=== PATIENT | male | born 1960 | race Caucasian/White ===

== ENCOUNTER 2017-01-12 18:41 | Emergency (ER) | payer MEDICAID, OTHER ==
[~2017-01-12] VITALS: Ht 170.2 cm; Wt 119.0 kg
[~2017-01-12 18:41] MED LIST: ASPI-535
[2017-01-12 18:46] VITALS: Ht 170.2 cm; Wt 119.0 kg
[2017-01-12] MEDS ORDERED: SOD CHLORIDE 0.9% 1,000 ML IV STA (19:42)
[2017-01-12] MEDS ORDERED: ONDANSETRON 4 MG INJ IV STA (19:42)
[2017-01-12] MEDS ORDERED: morphine 4 MG/ML VIAL IV STA (19:42)
[2017-01-12] MEDS ORDERED: LIDOCAINE/MYLANTA 40 ML BTL PO STA (19:42)
[2017-01-12 19:56] LABS: BASOPHILS % 0.3 % (0.0-2.0); EOSINOPHILS # 0.1 10^3/ul (0.0-0.5); EOSINOPHILS % 1.3 % (0.0-7.0); HEMATOCRIT 45.6 % (42.0-52.0); HEMOGLOBIN 15.5 g/dl (14.0-18.0); LYMPHOCYTES # 1.9 10^3/ul (0.8-2.9); LYMPHOCYTES % 18.8 % (15.0-51.0); MEAN CORPUSCULAR HEMOGLOBIN 30.9 pg (29.0-33.0); MONOCYTE # 0.8 10^3/ul (0.3-0.9); MONOCYTES % 7.7 % (0.0-11.0); NEUTROPHIL # 7.1 10^3/ul (1.6-7.5); NEUTROPHILS % 71.5 % (39.0-77.0); PLATELET COUNT 238 10^3/UL (140-415); RED BLOOD COUNT 5.01 10^6/ul (4.70-6.10); RED CELL DISTRIBUTION WIDTH 13.2 % (11.5-14.5); WHITE BLOOD COUNT 9.9 10^3/ul (4.8-10.8)
[2017-01-12 20:15] LABS: ALANINE AMINOTRANSFERASE 30 IU/L (13-69); ALBUMIN 4.1 g/dl (3.3-4.9); ALBUMIN/GLOBULIN RATIO 1.46; ALKALINE PHOSPHATASE 101 IU/L (42-121); ANION GAP 12 (8-16); ASPARTATE AMINO TRANSFERASE 21 IU/L (15-46); BILIRUBIN,INDIRECT 0.7 mg/dl (0-1.1); BILIRUBIN,TOTAL 0.7 mg/dl (0.2-1.3); BLOOD UREA NITROGEN 10 mg/dl (7-20); CALCIUM 10.6 mg/dl (8.4-10.2); CARBON DIOXIDE 25 mmol/L (21-31); CHLORIDE 107 mmol/L (97-110); CREATININE 0.86 mg/dl (0.61-1.24); GLUCOSE 115 mg/dl (70-220); SODIUM 140 mmol/L (135-144); TOTAL PROTEIN 6.9 g/dl (6.1-8.1)
--- NOTE | 2017-01-12 20:23 | RADRPT ---
PROCEDURE: US Abdomen (right upper quadrant). CLINICAL INDICATION: Abdominal pain TECHNIQUE: Multiple real-time longitudinal and transverse images of the right upper quadrant of th e abdomen were acquired utilizing a curved array transducer. Images were reviewed on a high-resoluti on PACS workstation. COMPARISON: None FINDINGS: The liver is enlarged measuring 19.8 cm in size and echogenicity without focal mass or intrahepatic biliary dilatation. The gallbladder is normal. There is no pericholecystic fluid or gallbladder wa ll thickening or gallstones. No intra or extrahepatic biliary dilatation is seen. The common bile duct measures 4.7 mm in maximal dimension. The visualized portions of the pancreas are unremarkable with obscuration of the tail of the pancreas. No free fluid is identified. The right kidney measures 11.7 cm in length. There is normal echogenicity within the right kidney. There is no perinephric fluid collection. No hydronephrosis, mass, or calculus is seen. IMPRESSION: Hepatomegaly. Otherwise, unremarkable right upper quadrant ultrasound. RPTAT: RR .Silvino Ryan MD, Date Time Electronically viewed and signed by .Silvino Ryan MD, on 01/12/2017 20:22 .A/
[2017-01-12 20:27] LABS: TROPONIN-I < 0.012 ng/ml (0.00-0.12)
[2017-01-12] MEDS ORDERED: HYDROmorphONE 1 MG/ML SYG IV STA (20:27)
--- NOTE | 2017-01-12 20:45 | RADRPT ---
PROCEDURE: XR Chest. CLINICAL INDICATION: Abdominal pain. TECHNIQUE: Single frontal view of the chest. COMPARISON: None. FINDINGS: Cardiomegaly. Mild bibasilar atelectasis. Lungs otherwise clear. No signs of pleural fluid or pneumo thorax are seen. The osseous structures and soft tissues are unremarkable. IMPRESSION: Mild bibasilar atelectasis. RPTAT: [facility] Physician Kale Date Time Electronically viewed and signed by Ruben Levin Physician on 01/12/2017 20:44 RS/
[2017-01-12] MEDS ORDERED: ASPI-664 PO (20:56)
[2017-01-12] MEDS ORDERED: AMLO-147 PO (20:56)
[2017-01-12] MEDS ORDERED: ONDA4TAB14 PO (21:22)
[2017-01-12] MEDS ORDERED: HYDR-902 PO (21:22)
--- NOTE | 2017-01-12 21:24 | ERD ---
ER Documentation Chief Complaint Date/Time DATE: 01/12/17 TIME: 21:23 Chief Complaint Pt reports upper abd pain and vomiting for 3 days, abcd intact, nad HPI Patient is a 56-year-old male with hypertension who presents with abdominal pain. The patient has midepigastric abdominal pain over the past 3 days. The pain comes and goes. The patient has nausea but no vomiting or diarrhea. The patient denies chest pain. There is no fever. The patient has had no treatment as of yet. The patient's primary doctor is Dr. Joe. ROS All systems reviewed and are negative except as per history of present illness. Medications Home Meds Active Scripts Ondansetron (Ondansetron Odt) 4 Mg Tab.rapdis, 4 MG PO Q6H Y for NAUSEA AND/OR VOMITING, #10 TAB Prov:HECTOR HAYWOOD MD 01/12/17 Hydrocodone/Acetaminophen ([place] 10-325 Tablet) 1 Each Tablet, 1 TAB PO Q6H Y for PAIN, #7 TAB Prov:HECTOR HAYWOOD MD 01/12/17 Reported Medications Amlodipine Besylate* (Amlodipine Besylate*) 10 Mg Tablet, 10 MG PO DAILY, #30 TAB NEEDED 01/12/17 Aspirin* (Aspirin* EC) 81 Mg Tablet., 81 MG PO Q7D Y for PRN, TAB 01/12/17 Discontinued Reported Medications Aspirin Ec (Aspir 81) 81 Mg Tablet. 01/01/10 Allergies Allergies: Coded Allergies: No Known Drug Allergies (Verified Allergy, Mild, 01/12/17) PMhx/Soc History of Surgery: No Anesthesia Reaction: No Hx Neurological Disorder: No Hx Respiratory Disorders: No Hx Cardiac Disorders: Yes (HTN) Hx Psychiatric Problems: No Hx Miscellaneous Medical Probl: No Hx Alcohol Use: Yes Hx Substance Use: No Hx Tobacco Use: Yes Smoking Status: Current every day smoker FmHx Family History: No coronary disease Physical Exam Vitals Vital Signs Date Time Temp Pulse Resp B/P Pulse Ox O2 Delivery O2 Flow Rate FiO2 01/12/17 21:50 79 20 150/91 Room Air 01/12/17 18:46 98.0 70 18 191/96 98 Physical Exam Const: Moderate distress secondary to pain Head: Atraumatic Eyes: Normal Conjunctiva ENT: Normal External Ears, Nose and Mouth. Neck: Full range of motion..~ No meningismus. Resp: Clear to auscultation bilaterally Cardio: Regular rate and rhythm, no murmurs Abd: Soft, Epigastric tenderness to palpation without rebound or guarding Skin: No petechiae or rashes Back: No midline or flank tenderness Ext: No cyanosis, or edema Neur: Awake and alert Psych: Normal Mood and Affect Result Diagram: 01/12/17193901/12/171939 Results 24 hrs Laboratory Tests Test 01/12/17 19:40 White Blood Count 9.910^3/ul Red Blood Count 5.0110^6/ul Hemoglobin 15.5g/dl Hematocrit 45.6% Mean Corpuscular Volume 91.0fl Mean Corpuscular Hemoglobin 30.9pg Mean Corpuscular Hemoglobin Concent 34.0g/dl Red Cell Distribution Width 13.2% Platelet Count 55007^3/UL Mean Platelet Volume 10.0fl Neutrophils % 71.5% Lymphocytes % 18.8% Monocytes % 7.7% Eosinophils % 1.3% Basophils % 0.3% Nucleated Red Blood Cells % 0.0/100WBC Neutrophils # 7.110^3/ul Lymphocytes # 1.910^3/ul Monocytes # 0.810^3/ul Eosinophils # 0.110^3/ul Basophils # 0.010^3/ul Nucleated Red Blood Cells # 0.010^3/ul Sodium Level 140mmol/L Potassium Level 4.0mmol/L Chloride Level 107mmol/L Carbon Dioxide Level 25mmol/L Anion Gap 12 Blood Urea Nitrogen 10mg/dl Creatinine 0.86mg/dl Glucose Level 115mg/dl Calcium Level 10.6mg/dl Total Bilirubin 0.7mg/dl Direct Bilirubin 0.00mg/dl Indirect Bilirubin 0.7mg/dl Aspartate Amino Transf (AST/SGOT) 21IU/L Alanine Aminotransferase (ALT/SGPT) 30IU/L Alkaline Phosphatase 101IU/L Troponin I < 0.012ng/ml Total Protein 6.9g/dl Albumin 4.1g/dl Globulin 2.80g/dl Albumin/Globulin Ratio 1.46 Lipase 81U/L Current Medications Medications (Trade) Dose Ordered Sig/Shyann Route PRN Reason Start Time Stop Time Status Last Admin Dose Admin Sodium Chloride (NS) 1,000 ml @ 1,000 mls/hr Q1H STAT IV 9/15/17 19:42 01/12/17 20:41 DC 01/12/17 19:48 Morphine Sulfate (morphine) 4 mg ONCE STAT IV 01/12/17 19:42 01/12/17 19:43 DC 01/12/17 19:47 Ondansetron HCl (Zofran Inj) 4 mg ONCE STAT IV 01/12/17 19:42 01/12/17 19:43 DC 01/12/17 19:48 Miscellaneous Medication (Gi Cocktail (2)) 40 ml ONCE STAT PO 01/12/17 19:42 01/12/17 19:43 DC 01/12/17 19:47 Hydromorphone HCl (Dilaudid) 1 mg ONCE STAT IV 01/12/17 20:27 01/12/17 20:28 DC 01/12/17 20:39 Acetaminophen/ Hydrocodone Bitart ([place] (10/325)) 1 tab ONCE ONCE PO 01/12/17 22:00 01/12/17 22:00 DC 01/12/17 21:47 Procedures/MDM EKG read by me: Rate/Rhythm: Regular rate and rhythm at a rate of 62 Intervals: Normal Impression: No evidence of ischemia or arrhythmia PROCEDURE: XR Chest. CLINICAL INDICATION: Abdominal pain. TECHNIQUE: Single frontal view of the chest. COMPARISON: None. FINDINGS: Cardiomegaly. Mild bibasilar atelectasis. Lungs otherwise clear. No signs of pleural fluid or pneumothorax are seen. The osseous structures and soft tissues are unremarkable. IMPRESSION: Mild bibasilar atelectasis. RPTAT: [facility] Physician Kale Date Time Electronically viewed and signed by Physician Kale on 01/12/2017 20:44 PROCEDURE: US Abdomen (right upper quadrant). CLINICAL INDICATION: Abdominal pain TECHNIQUE: Multiple real-time longitudinal and transverse images of the right upper quadrant of the abdomen were acquired utilizing a curved array transducer. Images were reviewed on a high-resolution PACS workstation. COMPARISON: None FINDINGS: The liver is enlarged measuring 19.8 cm in size and echogenicity without focal mass or intrahepatic biliary dilatation. The gallbladder is normal. There is no pericholecystic fluid or gallbladder wall thickening or gallstones. No intra or extrahepatic biliary dilatation is seen. The common bile duct measures 4.7 mm in maximal dimension. The visualized portions of the pancreas are unremarkable with obscuration of the tail of the pancreas. No free fluid is identified. The right kidney measures 11.7 cm in length. There is normal echogenicity within the right kidney. There is no perinephric fluid collection. No hydronephrosis, mass, or calculus is seen. IMPRESSION: Hepatomegaly. Otherwise, unremarkable right upper quadrant ultrasound. RPTAT: RR .Silvino Ryan MD, MD Date Time Electronically viewed and signed by .Silvino Ryan MD, on 01/12/2017 20:22 Smoking Cessation Therapy: Pt. was lectured for greater than 3 minutes on the health risks of continued smoking and the benefits of cessation. Patient is a 56-year-old male who presents with midepigastric abdominal pain. Given his age, hypertension, and smoking I did want to admit him to the hospital to workup possible acute coronary syndrome but he is adamantly refusing. I doubt cholecystitis, pancreatitis, appendicitis, or bowel obstruction. The patient will need to follow-up closely with his primary doctor within 24 hours and can return if symptoms worsen. I believe outpatient management is appropriate at this time close follow-up is important and the patient could return for any worsening symptoms. Departure Diagnosis: Primary Impression: Abdominal pain Abdominal location: epigastric Qualified Code: R10.13 - Epigastric pain Condition: Fair Patient Instructions: Abdominal Pain Referrals: TIMA JOE MD (PCP) Additional Instructions: FOLLOW UP WITH YOUR PRIMARY CARE PHYSICIAN TOMORROW.Return to this facility if you are not improving as expected. HECTOR HAYWOOD MD Jan 12, 2017 21:23
[2017-01-12 21:50] VITALS: BP 150/91; PULSE 79; RESP 20
[2017-01-12] MEDS ORDERED: HYDROCODONE/APAP (10/325) TAB PO ONE (22:00)
== END 2017-01-12 21:52 | disposition home or self-care (01) ==
LOC: E/R 18:41
DX: R10.13 Epigastric pain (principal); I10 Essential (primary) hypertension; R11.0 Nausea; F17.210 Nicotine dependence, cigarettes, uncomplicated; Z79.82 Long term (current) use of aspirin
CPT/HCPCS: 36415; 71010; 76705; 80053; 83690; 84484; 85025; 93005; 96374; 96375; J1170; J2270; J2405; J7030; Z7502; Z7610